=== PATIENT | female | born 1945 | race Caucasian/White ===

== ENCOUNTER → 2019-03-29 | Outpatient (CLI) | payer OTHER | LOC: M.CT 11:21 | DX: Z13.6 Encounter for screening for cardiovascular disorders (principal) ==

== ENCOUNTER → 2019-04-22 | Outpatient (CLI) | payer OTHER | LOC: M.CT 09:00 | DX: R91.1 Solitary pulmonary nodule (principal) ==

== ENCOUNTER → 2019-09-23 | Outpatient (CLI) | payer MEDICARE | LOC: M.LAB 10:45 | DX: Z03.818 Encounter for observation for suspected exposure to other biological agents ruled out (principal) ==

== ENCOUNTER → 2020-06-21 | Outpatient (CLI) | payer OTHER | LOC: M.CT 09:00 | PROVIDERS: ATTEND Family Medicine | DX: J90 Pleural effusion, not elsewhere classified (principal); R91.1 Solitary pulmonary nodule; J98.11 Atelectasis; J98.4 Other disorders of lung; M25.78 Osteophyte, vertebrae ==

== ENCOUNTER → 2020-08-07 | Outpatient (CLI) | payer OTHER | LOC: M.LAB 16:30 | PROVIDERS: ATTEND Orthopaedic Surgery | DX: Z01.812 Encounter for preprocedural laboratory examination (principal); Z20.822 Contact with and (suspected) exposure to COVID-19; M65.841 Other synovitis and tenosynovitis, right hand ==